=== PATIENT | female | born 2000 | race African-American/Black ===

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

== ENCOUNTER 2022-05-13 19:51 | Inpatient (IN) | payer MEDICAID, OTHER ==
[~2022-05-13] VITALS: Ht 160 cm; Wt 85.2 kg
[2022-05-13] MEDS ORDERED: ONDANSETRON ODT 4 MG TAB PO ONE (20:45)
[2022-05-13] MEDS ORDERED: KETOROLAC TROMETH 30 MG/ML 1ML VIAL IM ONE (20:45)
[2022-05-13 21:11] LABS: Basophils # (auto) 0 10 ^3/uL (0-0.2); Eosinophils # (auto) 0 10 ^3/uL (0-0.8); Eosinophils % (auto) 0.1 % (0.0-7.0); Monocytes # (auto) 0.6 10 ^3/uL (0-1.3); Neutrophils # (auto) 6.1 10 ^3/uL (1.6-8.6)
[2022-05-13 21:12] LABS: Basophils % (auto) 0.3 % (0.0-2.0); Hematocrit 31.7 % (36.0-46.0); Hemoglobin 9.7 g/dL (12.2-16.2); Lymphocytes # (auto) 1.1 10 ^3/uL (0.4-5.4); Lymphocytes % (auto) 13.5 % (10.0-50.0); Mean Corpuscular Hemoglobin 21.5 pg (28.0-32.0); Mean Corpuscular Hgb Conc. 30.5 g/dL (32.0-36.0); Mean Corpuscular Volume 70.6 fL (80.0-100.0); Monocytes % (auto) 7.8 % (0.0-12.0); Neutrophils % (auto) 78.3 % (37.0-80.0); Nucleated Red Blood Cells % 0.1 %; Red Blood Cells 4.49 10^6/uL (4.0-5.20); Red Cell Distribution Width 17.4 % (11.8-14.3); White Blood Cell 7.8 10^3/uL (4.4-10.8)
[2022-05-13 21:26] LABS: Albumin 3.7 g/dL (3.4-5.0); BUN/Creatinine Ratio 16.2; Calcium 9.4 mg/dL (8.5-10.1); Magnesium 1.9 mg/dL (1.6-2.6); Potassium 3.6 mmol/L (3.5-5.1)
[2022-05-13 21:28] LABS: Bilirubin, Total 0.2 mg/dL (0.2-1.0); Total Protein 7.5 g/dL (6.4-8.2)
[2022-05-13] MEDS ORDERED: ASPirin 81 mg TAB PO ONE (22:30)
[2022-05-14] MEDS ORDERED: NITROGLYCERIN 0.4 MG SL TAB SL PRN (01:00)
[2022-05-14] MEDS ORDERED: ONDANSETRON HCL 4 MG/2 ML VIAL IV PRN (01:00)
[2022-05-14] MEDS ORDERED: MORPHINE SULFATE INJ 2 MG/ml SYRG IV PRN ×2 (01:00)
[2022-05-14 05:13] VITALS: BP 118/58
[2022-05-14 07:11] LABS: Basophils # (auto) 0 10 ^3/uL (0-0.2); Basophils % (auto) 0.5 % (0.0-2.0); Eosinophils # (auto) 0.1 10 ^3/uL (0-0.8); Eosinophils % (auto) 1.3 % (0.0-7.0); Hematocrit 30.6 % (36.0-46.0); Hemoglobin 9.5 g/dL (12.2-16.2); Lymphocytes # (auto) 1.4 10 ^3/uL (0.4-5.4); Lymphocytes % (auto) 23.9 % (10.0-50.0); Mean Corpuscular Hemoglobin 21.5 pg (28.0-32.0); Mean Corpuscular Hgb Conc. 31.1 g/dL (32.0-36.0); Mean Corpuscular Volume 69.1 fL (80.0-100.0); Monocytes # (auto) 0.7 10 ^3/uL (0-1.3); Monocytes % (auto) 11.7 % (0.0-12.0); Neutrophils # (auto) 3.8 10 ^3/uL (1.6-8.6); Neutrophils % (auto) 62.6 % (37.0-80.0); Nucleated Red Blood Cells % 0.1 %; Red Blood Cells 4.42 10^6/uL (4.0-5.20); Red Cell Distribution Width 17.3 % (11.8-14.3)
[2022-05-14 07:20] LABS: Albumin 3.2 g/dL (3.4-5.0); Calcium 8.8 mg/dL (8.5-10.1); Potassium 3.5 mmol/L (3.5-5.1)
[2022-05-14 07:24] LABS: BUN/Creatinine Ratio 19.4; Bilirubin, Total 0.2 mg/dL (0.2-1.0); Total Protein 7.2 g/dL (6.4-8.2)
[2022-05-14 09:00] VITALS: BP 112/35
[2022-05-14] MEDS ORDERED: ASPirin 81 mg TAB PO ONE (10:00)
[2022-05-14] MEDS ORDERED: LEVO50TA7 PO (10:36)
[2022-05-14 13:00] VITALS: BP 95/57
[2022-05-14 17:00] VITALS: BP 108/46
[2022-05-14 22:00] VITALS: BP 100/53
[2022-05-15 04:16] LABS: Basophils # (auto) 0 10 ^3/uL (0-0.2); Eosinophils # (auto) 0.2 10 ^3/uL (0-0.8); Eosinophils % (auto) 3.7 % (0.0-7.0); Mean Corpuscular Hgb Conc. 30.3 g/dL (32.0-36.0); Monocytes # (auto) 0.6 10 ^3/uL (0-1.3); Neutrophils # (auto) 3.1 10 ^3/uL (1.6-8.6); Nucleated Red Blood Cells % 0.1 %; White Blood Cell 5.2 10^3/uL (4.4-10.8)
[2022-05-15 04:20] LABS: Basophils % (auto) 0.8 % (0.0-2.0); Hematocrit 30.8 % (36.0-46.0); Hemoglobin 9.3 g/dL (12.2-16.2); Lymphocytes # (auto) 1.3 10 ^3/uL (0.4-5.4); Lymphocytes % (auto) 25.6 % (10.0-50.0); Mean Corpuscular Hemoglobin 21.5 pg (28.0-32.0); Monocytes % (auto) 11.7 % (0.0-12.0); Neutrophils % (auto) 58.2 % (37.0-80.0); Red Blood Cells 4.33 10^6/uL (4.0-5.20); Red Cell Distribution Width 17.3 % (11.8-14.3)
[2022-05-15 04:33] LABS: Potassium 3.9 mmol/L (3.5-5.1)
[2022-05-15 04:36] LABS: Albumin 3.2 g/dL (3.4-5.0); BUN/Creatinine Ratio 17.5
[2022-05-15 04:39] LABS: Bilirubin, Total 0.2 mg/dL (0.2-1.0)
[2022-05-15 05:00] VITALS: BP 103/40
[2022-05-15] MEDS ORDERED: LEVOTHYROXINE SODIUM 50 MCG TAB PO SCH (07:00)
[2022-05-15 09:00] VITALS: BP 105/58
[2022-05-15] MEDS ORDERED: IOHEXOL 350 MG/ML 100ML IJ ONE (12:30)
[2022-05-15 13:00] VITALS: BP 90/56
== END 2022-05-15 16:45 | disposition left against medical advice (07) | DRG 203 ==
LOC: ER 19:51 → TELE 05-14 01:07 → TELE-EAST 05-14 04:45
PROVIDERS: ADMIT Internal Medicine; ATTEND Internal Medicine
DX: R07.89 Other chest pain (principal); D64.9 Anemia, unspecified; Z20.822 Contact with and (suspected) exposure to COVID-19; Z53.29 Procedure and treatment not carried out because of patient's decision for other reasons; J45.909 Unspecified asthma, uncomplicated; E66.9 Obesity, unspecified; Z68.33 Body mass index [BMI] 33.0-33.9, adult; R77.8 Other specified abnormalities of plasma proteins
CPT/HCPCS: 36415; 71046; 71275; 80053; 83735; 84443; 84484; 84702; 85025; 85379; 86141; 93005; 93306; G0378; J1885; Q0162

== ENCOUNTER 2024-03-04 20:29 | Emergency (ER) | payer MEDICAID ==
[~2024-03-04] VITALS: Ht 162.6 cm; Wt 81.8 kg
[~2024-03-04 20:29] MED LIST: LEVO50TA7 PO
[2024-03-04 21:00] LABS: Basophils # (auto) 0 10 ^3/uL (0-0.2); Eosinophils # (auto) 0.1 10 ^3/uL (0-0.8); Monocytes # (auto) 0.6 10 ^3/uL (0-1.3); Red Cell Distribution Width 15.9 % (11.8-14.3)
[2024-03-04 21:02] LABS: Basophils % (auto) 0.3 % (0.0-2.0); Hematocrit 36.3 % (36.0-46.0); Hemoglobin 11.6 g/dL (12.2-16.2); Lymphocytes # (auto) 2.2 10 ^3/uL (0.4-5.4); Mean Corpuscular Hemoglobin 22.7 pg (28.0-32.0); Mean Corpuscular Hgb Conc. 31.8 g/dL (32.0-36.0); Mean Corpuscular Volume 71.5 fL (80.0-100.0); Monocytes % (auto) 9.6 % (0.0-12.0); Neutrophils # (auto) 3.2 10 ^3/uL (1.6-8.6); Neutrophils % (auto) 52.1 % (37.0-80.0); Red Blood Cells 5.08 10^6/uL (4.0-5.20); White Blood Cell 6.2 10^3/uL (4.4-10.8)
[2024-03-04 21:12] LABS: Alanine Aminotransferase 30 U/L (7-40); Albumin 4.1 g/dL (3.2-4.8); Alkaline Phosphatase 120 U/L (46-116); Anion Gap 7 (5-15); Aspartate Aminotransferase 22 U/L (13-40); BUN/Creatinine Ratio 17.9 (10.0-20.0); Blood Urea Nitrogen 10 mg/dL (9-23); Calcium 9.4 mg/dL (8.7-10.4); Carbon Dioxide 23 mmol/L (20-30); Chloride 109 mmol/L (98-107); Glucose 123 mg/dL (74-106); Potassium 3.5 mmol/L (3.5-5.1); Sodium 139 mmol/L (136-145)
[2024-03-04 21:13] LABS: Urine Bacteria FEW /hpf (None Seen); Urine Blood 1+ /uL (Negative); Urine Clarity Turbid (Clear); Urine Color Yellow (Yellow); Urine Mucus FEW (None Seen); Urine Protein, UAD 1+ (Negative); Urine Specific Gravity 1.042 (1.001-1.035); Urine Urobilinogen Normal (Negative); Urine WBC 28 /hpf (0 - 5); Urine pH 5.5 (5.0-9.0)
[2024-03-04 21:13] LABS: Bilirubin, Total 0.2 mg/dL (0.2-1.0); Total Protein 7.5 g/dL (5.7-8.2)
[2024-03-04] MEDS: KETOROLAC TROMETH 60MG/2ML VIAL IM ONE (22:17)
[2024-03-04] MEDS ORDERED: NITR-87 PO (23:32)
[2024-03-04] MEDS ORDERED: ZOFR4T PO (23:32)
[2024-03-04] MEDS ORDERED: ACET500T58 PO (23:32)
[2024-03-04] MEDS ORDERED: LEV50T PO (23:56)
[2024-03-04] MEDS ORDERED: ALBU108A5 IN (23:56)
[2024-03-04 23:57] VITALS: BP 122/74; PULSE 89; RESP 18; TEMP 98.2; O2SAT 98
[2024-03-05] MEDS: NITROFURANTOIN 100 mg CAP PO ONE
== END 2024-03-04 23:59 | disposition home or self-care (01) ==
LOC: ER 20:29
DX: R07.89 Other chest pain (principal); N39.0 Urinary tract infection, site not specified; E66.01 Morbid (severe) obesity due to excess calories; Z68.31 Body mass index [BMI] 31.0-31.9, adult; Z98.890 Other specified postprocedural states; Z79.899 Other long term (current) drug therapy
CPT/HCPCS: 36415; 71045; 80053; 81001; 84484; 85025; 93005; 96372; 99285; J1885

== ENCOUNTER 2024-04-21 09:17 | Emergency (ER) | payer MEDICAID ==
[~2024-04-21] VITALS: Ht 167.6 cm; Wt 91.6 kg
[~2024-04-21 09:17] MED LIST changes: +ACET500T58 PO; +ALBU108A5 IN; +LEVO-848 PO; +NITR-87 PO; +ZOFR4T PO
[2024-04-21 10:30] VITALS: BP 125/84; PULSE 99; RESP 16; TEMP 97.9; O2SAT 98
[2024-04-21] MEDS ORDERED: TRIA0.02 TOP (10:31)
[2024-04-21] MEDS ORDERED: PRED20TA2 PO (10:31)
== END 2024-04-21 10:42 | disposition home or self-care (01) ==
LOC: ER 09:17
DX: L25.9 Unspecified contact dermatitis, unspecified cause (principal); Z79.899 Other long term (current) drug therapy